=== PATIENT | female | born 1980 | race Caucasian/White ===

== ENCOUNTER 2018-08-26 16:01 | Emergency (ER) | payer BC, SELFPAY ==
[2018-08-26 16:01] VITALS: BP 154/104; PULSE 85; RESP 18; TEMP 36.7; O2SAT 99; BMI 19.9
--- NOTE | 2018-08-26 16:35 | CT_ITS ---
STUDY: CT BRAIN WITHOUT CONTRAST REASON FOR EXAM: Female, 37 years old. Confusion, dizziness RADIATION DOSAGE (If Supplied By Facility): CTDIvol = ( 60.81 ) mGy, DLP = ( 998.67 ) mGycm TECHNIQUE: Transaxial CT imaging of the brain was performed without administration of intravenous contrast material. Individualized dose optimization techniques were used for this CT. COMPARISON: None. FINDINGS: Normal soft tissue structures. Normal calvarium. Normal size ventricles and extra-axial spaces for the patient's age. Normal white matter tracts of the cerebral hemispheres. Normal basal ganglia and thalami. Normal brainstem. Normal cerebellum. There is no intracranial hemorrhage. There are no findings of an acute ischemic infarction. There is mucoperiosteal inflammatory disease of the paranasal sinuses consistent with moderate chronic sinusitis. CT/Brain/Head without Contrast IMPRESSION: Normal unenhanced CT scan of the brain. Paranasal sinusitis Electronically Signed: Dominick Mccullough MD at 17:16 EST , Service support ,
[2018-08-26 16:47] LABS: Bacteria 0 SEEN /hpf (None Seen); Mucous, Urine 0 SEEN /hpf (<or=2+); Red Blood Cells-Urine 0 SEEN /hpf (0-5); White Blood Cells 0 SEEN /hpf (0-5)
--- NOTE | 2018-08-26 16:48 | ED.DCSUM_ITS ---
- ER Visit Summary Date of Service: 08/26/18 Chief Complaint: Confusion episodes History of Present Illness: The patient is a 37 F who presents with episodes of confusion that have been getting more frequent over the past 4 days. Patient states she feels zoned out intermittently throughout the day. Patient states these episodes last for several hours. Patient states she has been having some recent upper respiratory congestion. Patient states she has been coughing up some green sputum. Patient states she started taking amoxicillin that she had leftover from the summer. Patient denies any fevers or chills. Patient denies any ear pain. Patient admits to mild sore throat with coughing. Patient admits to some urinary hesitancy. Patient also admits to general myalgias. Physical Examination: Vital signs are stable. Patient is afebrile. Patient is in no acute distress. Oral mucosa is pink and moist. Neck is supple. Trachea is midline. There is no JVD noted. Heart was regular rate and rhythm. Lungs are clear and equal bilateral. Abdomen is soft. Bowel sounds are normal. There is no tenderness. There is no guarding noted. Skin is warm dry. Cranial nerves II through XII are intact. There are no focal motor or sensory deficits noted. The remaining physical exam is within normal limits. Test Results: CBC, comprehensive metabolic profile, urinalysis, influenza swab, PA and lateral chest x-ray, and CT scan of the brain were obtained and were all normal. Emergency Department Course and Treatment: Patient was instructed to follow-up with her primary care physician in 5-7 days. Patient understood and was agreeable with the plan. All questions were answered. Disposition: Discharge home Impression: Confusion episodes This note was generated with [employer] dictation software. It may contain incorrect words, spelling, and punctuation that were not noted in review of the chart prior to signing ED Disposition - Plan for ED Patient: Disposition: Home or Assisted Living Diagnosis: Confusion Instructions: ED Confusion Referrals: Thania Cunningham [Primary Care Provider] -
[2018-08-26 16:52] LABS: Color, Urine Yellow (Yellow); Glucose, Dipstick Normal (Normal); Ketone-Dipstick Negative (Negative); Leukocyte Esterase-Dipstick Negative /ul (Negative); Nitrite-Dipstick Negative (Negative); Occult Blood-Urine 10 /ul (Negative); Protein-Dipstick Negative (Negative); Urine Bilirubin Dipstick Negative (Negative); Urine Clarity Clear (Clear); Urine Urobilinogen Normal (Normal); Urine pH 6.5 (5.0 - 8.0)
[2018-08-26 17:04] LABS: Squamous Epithelial Cells - UA 0-5 SEEN /hpf (5-10)
--- NOTE | 2018-08-26 17:04 | RAD_ITS ---
STUDY: X-RAY CHEST REASON FOR EXAM: Female, 37 years old. Dizziness TECHNIQUE: PA and lateral views of the chest. COMPARISON: None. FINDINGS: EKG leads overlie the chest The lungs are clear and expanded. There is no demonstrated pleural abnormality. Normal size heart. Normal mediastinum and kenna. Normal visualized pulmonary arteries. Normal visualized aortic arch and descending thoracic aorta. Normal visualized thoracic spine. Normal visualized ribs, clavicles, and shoulders. There is no demonstrated abnormality of the visualized soft tissue structures of the upper abdomen. RAD/Chest PA and Lateral IMPRESSION: Normal x-ray examination of the chest. Electronically Signed: Dominick Mccullough MD at 17:30 EST , Service support ,
[2018-08-26] MEDS: 0.9% Normal Saline 1,000 ML 1000 ML IV (17:41)
[2018-08-26 17:46] LABS: Absolute Lymphocyte Count 1.74 X10^3/ul (0.83-4.51); Absolute Neutrophil Count 2.7 X10^3/uL (2.0-7.7); Basophil# 0.02 X10^3/uL; Basophil% 0.4 % (0-1); Eosinophil# 0.08 X10^3/uL; Eosinophils% 1.6 % (0-5); Hematocrit 38.6 % (37-47); Hemoglobin 12.7 g/dl (12.0-15.0); Lymphocyte # 1.74 X10^3/ul (4.0); Lymphocyte % 34.6 % (19-41); Mean Corp Hgb Conc 32.9 g/gl (32-36); Mean Corpuscular Hgb 30.2 pg (27.0-32.0); Mean Corpuscular Volume 91.7 fL (81-99); Mean Platelet Vol. 11.6 fl (6.2-12.0); Monocyte# 0.45 X10^3/uL; Monocyte% 8.9 % (0-10); Neutrophil # 2.73 X10^3/uL (2.7-7.7); Neutrophil % 54.3 % (47-70); Platelet Count 255 K/mm3 (150-450); RBC Distribution Width CV 11.5 % (11.6-14.6); RBC Distribution Width SD 38.2 fl (35.1-43.9); Red Blood Count 4.21 M/mm3 (4.2-5.4)
[2018-08-26 17:47] LABS: POSITIVE COUNT NO; POSITIVE DIFFERENTIAL NO; POSITIVE MORPHOLOGY NO
[2018-08-26 18:00] LABS: ALB/GLOB Ratio 0.9 RATIO (0.9-2.4); AST(SGOT) 28 U/L (15-37); Alanine Aminotransfer ALT/SGPT 18 U/L (13-56); Albumin, Serum 3.6 g/dL (3.2-5.0); Alkaline Phosphatase 53 U/L (45-117); Anion Gap 8 (5-15); BUN 7 mg/dL (7-18); BUN/Creat Ratio 11.8 RATIO (10-20); Calcium,Total 8.7 mg/dL (8.5-10.1); Chloride 105 mmol/L (98-107); Creatinine, Serum 0.59 mg/dL (0.55-1.02); EST Glomerular Filtration Rate 121 mL/min (>60); Est Glom Filt Rate - Afr Amer 146 mL/min (>60); Estimated Creatinine Clearance 108.41 ml/min; Globulin 4.1 g/dL (2.2-4.2); Glucose 75 mg/dL (74-106); Potassium 4.4 mmol/L (3.5-5.1); Protein, Total 7.7 g/dL (6.4-8.2); Sodium Level 138 mmol/L (136-145)
[2018-08-26 18:06] VITALS: BP 139/96; PULSE 83; RESP 16; O2SAT 98
[2018-08-26 20:06] VITALS: BP 130/92; PULSE 81; RESP 16; O2SAT 96
== END 2018-08-26 20:07 | disposition home or self-care (01) ==
PROVIDERS: Emergency Provider Emergency Medicine; Family Provider Pediatrics; PCP Pediatrics
DX: R41.0 Disorientation, unspecified (principal); F41.9 Anxiety disorder, unspecified; F32.9 Major depressive disorder, single episode, unspecified; Z79.899 Other long term (current) drug therapy
CPT/HCPCS: 70450; 71046; 80053; 81001; 85025; 87804; 96360; 96361; 99285; J7030; A4216

== ENCOUNTER 2022-03-06 16:51 | Emergency (ER) | payer BC, SELFPAY ==
[2022-03-06 16:52] VITALS: BP 129/88; PULSE 92; RESP 16; TEMP 36.6; O2SAT 98; BMI 20.3
--- NOTE | 2022-03-06 18:50 | CT_ITS ---
STUDY: CT BRAIN WITHOUT CONTRAST REASON FOR EXAM: Female, 41 years old. headaches, elevated prolactin RADIATION DOSAGE (If Supplied By Facility): CTDIvol = ( 44.99 ) mGy, DLP = ( 745.49 ) mGycm TECHNIQUE: Transaxial CT imaging of the brain was performed without administration of intravenous contrast material. Individualized dose optimization techniques were used for this CT. COMPARISON: 08/26/2018 FINDINGS: Normal soft tissue structures. Normal calvarium. Normal size ventricles and extra-axial spaces for the patient''s age. Normal white matter tracts of the cerebral hemispheres. Normal basal ganglia and thalami. Normal brainstem. Normal cerebellum. There is no intracranial hemorrhage. There are no findings of an acute ischemic infarction. Normal visualized paranasal sinuses. CT/Brain/Head without Contrast IMPRESSION: Normal unenhanced CT scan of the brain. Electronically Signed: Christiano Keller MD at 19:54 EDT ,
[2022-03-06] MEDS: DiphenhydrAMINE 50 MG/ML Syringe 25 MG IV (19:11)
[2022-03-06] MEDS: Ketorolac 15 MG/ML Vial IV (19:11)
[2022-03-06] MEDS: 0.9% Normal Saline 1,000 ML 999 ML IV (19:11)
[2022-03-06] MEDS: Ondansetron 4 MG/2 ML Vial IV (19:12)
--- NOTE | 2022-03-06 20:13 | EDS_ITS ---
HPI History of Present Illness Chief Complaint: Headache Informant: patient Narrative Narrative: Patient is a 41-year-old female with history of anxiety, hypertension and headaches presenting with headaches. Patient states that she been having worsening headaches over the past 2 to 3 months with increased frequency and severity of the headaches. They are behind her eyes. She does have associated photophobia. She is been having irregular menstrual cycles and she saw her MICRO LAB ANALYST who checked labs. Her procalcitonin level was triple what it supposed to be and they told her she could have a brain mass. She was supposed to have an MRI ordered has not been ordered yet. She is worried that she could have a brain mass is causing her worsening headache so she came to the emergency room because she could not keep waiting around for her MRI. 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 She denies any sick contacts. Denies any fever or chills. Last had medications for headache around 1030 this morning. Just takes [id number] ibuprofen and Tylenol. Does have a history of chronic neck pain and anxiety. No other complaints at this time. PFSH PFSH Home Medications alprazolam 0.25 mg tablet 0.25 mg PO 4X/DAY PRN PRN Anxiety 08/26/18 [History Last Taken 08/26/18] buspirone 30 mg tablet 30 mg PO DAILY 08/26/18 [History Last Taken 08/26/18] trazodone 50 mg tablet 25 mg PO QHS 08/26/18 [History Last Taken 08/26/18] venlafaxine 150 mg capsule,extended release 24 hr 225 mg PO DAILY 08/26/18 [History Last Taken 08/26/18] lisinopril 5 mg tablet 5 mg PO DAILY 03/06/22 [History Last Taken Unknown] Allergy/AdvReac Type Severity Reaction Status Date / Time bee venom protein (honey bee) Allergy Anaphylaxis Verified 03/06/22 16:54 dicyclomine [From Bentyl] AdvReac Rash Verified 03/06/22 16:54 Social History Smoking Status: Never smoker ROS ROS ED Constitutional Constitutional ED: Denies chills or fever(s) Eyes Eyes: Reports other Details: Photophobia ; Denies blurry vision, change in vision or diplopia ENT ENT ED: Denies rhinorrhea or sore throat Cardiovascular Cardiovascular: Denies chest pain Respiratory/Chest Respiratory/Chest: Denies cough or dyspnea Gastrointestinal Gastrointestinal: Denies nausea or vomiting Musculoskeletal Musculoskeletal: Reports neck pain; Denies arthralgias or myalgias Integumentary Denies rash Neurologic Neurologic: Reports headache(s); Denies paresthesias or weakness Psychiatric Psychiatric: Reports anxiety Hematologic/Lymphatic Hematologic/Lymphatic: Denies easy bleeding or easy bruising EXAM Physical Exam Const Vital Signs: 03/06/22 16:52 Temperature 98 F Temperature Source Temporal Pulse Rate 92 Respiratory Rate 16 Blood Pressure 129/88 H Blood Pressure Mean 101 Pulse Ox 98 Oxygen Delivery Method Room Air Positive well nourished and well developed General Appearance ED: well developed and NAD HEENT Reports normocephalic, TM's clear and moist mucous membranes atraumatic Face and Sinus: Negative for sinus tenderness Tympanic Membrane ED: Yes TM's clear Eyes PERRL and EOMs intact bilaterally Eyes Narrative: No visual field cut Neck supple and no meningeal signs Resp normal respiratory effort and clear to auscultation bilaterally Cardio regular rate, regular rhythm and no murmurs GI non-tender and non-distended Extremity normal to inspection and full ROM Neuro oriented x3, CN's II-XII intact bilaterally and no sensory deficits noted Speech: speech normal Motor Exam: Negative for general weakness Psych mental status grossly normal Mood & Affect: anxious Skin Lesions: no lesions Rashes: no rashes MDM MDM MDM Narrative Medical decision making narrative: Patient evaluated for worsening headaches. She had outpatient elevated prolactin level. She has normal neurologic exam. No meningeal signs. Given the chronicity of her headaches have a lower suspicion for subarachnoid or intracranial bleed. Vital signs are normal. CT of the brain is obtained which does not show any acute process. Patient is given IV Zofran, Toradol, fluids and Benadryl. On repeat evaluation she does not feel significantly improved. Is offered further medications but states at this point she just wants to go home. Is given a subcu dose of sumatriptan. We will follow-up with her charger operator helper for ordering her MRI. Is given referral for neurology. Counseled on return precautions. Patient verbalizes agreement understand this plan. Discharged home in stable condition. Radiography Diagnostic Testing: Clinical Impression(s) from Imaging Studies Brain CT 03/06/22 18:50 IMPRESSION: Normal unenhanced CT scan of the brain. Electronically Signed: Christiano Keller MD at 19:54 EDT , Discharge Plan Triage Chief Complaint: Headache ED Provider: Edith Escalante Dx/Rx/DC Orders Clinical Impression: Headache around the eyes Instructions: ED Headache Unspecified Prescriptions: No Action trazodone 50 MG tablet 25 mg PO QHS venlafaxine 150 MG capsule,extended release 24hr 225 mg PO DAILY alprazolam 0.25 MG tablet 0.25 mg PO 4X/DAY PRN PRN (Reason: Anxiety) buspirone 30 MG tablet 30 mg PO DAILY lisinopril 5 mg tablet 5 mg PO DAILY Label Comments: TAKE 1 TABLET BY MOUTH ONCE DAILY Primary Care Provider: Thania Cunningham Referrals: Thania Cunningham MD [Primary Care Provider] - Kelechi Bowen MD [Non-Staff -Ordering Privileges] - As soon as possible Disposition Disposition: Home, Self Care
[2022-03-06] MEDS: SUMAtriptan 6 MG/0.5 ML Vial SC (21:07)
== END 2022-03-06 21:26 | disposition home or self-care (01) ==
PROVIDERS: Emergency Provider Emergency Medicine; PCP Pediatrics; Visit Provider Emergency Medicine
DX: R51.9 Headache, unspecified (principal); F41.9 Anxiety disorder, unspecified; I10 Essential (primary) hypertension; N92.6 Irregular menstruation, unspecified; Z79.899 Other long term (current) drug therapy
CPT/HCPCS: 70450; 96361; 96372; 96374; 96375; 99283; J7030; A4216; J2405; J3030